=== PATIENT | female | born 1990 | race Caucasian/White ===

== ENCOUNTER 2018-10-03 21:00 | Inpatient (IN) | payer MEDICAID, OTHER, SELFPAY ==
[2018-10-03] MEDS ORDERED: Carboprost 250 MCG/ML AMP IM PRN (22:22)
[2018-10-03] MEDS ORDERED: Ibuprofen 800 MG TAB PO PRN (22:22)
[2018-10-03] MEDS ORDERED: Butorphanol Tartrate 1 MG/ML VIAL SLOW IVP PRN (22:22)
[2018-10-03] MEDS ORDERED: HYDROcodone/Acetaminophen 5/325 mg Tablet PO PRN (22:22)
[2018-10-03] MEDS ORDERED: Methylergonovine 0.2 MG/ML VIAL IM PRN (22:22)
[2018-10-03] MEDS ORDERED: Diphenoxylate HCl/Atropine Tablet PO PRN (22:22)
[2018-10-03] MEDS ORDERED: Lidocaine 1% (PF) 30 ML VIAL SC PRN (22:22)
[2018-10-03] MEDS ORDERED: Misoprostol 200 MCG TAB PR PRN (22:22)
[2018-10-03] MEDS ORDERED: NS w/ Oxytocin 10 units 500 ML IV SCH (22:22)
[2018-10-03 22:47] VITALS: BMI 346.5
[2018-10-03 23:53] LABS: Hemoglobin 13.5 g/dL (12.0-16.0); Mean Corpuscular HGB CONC 32.5 g/dL (32.0-36.0); Mean Corpuscular Hemoglobin 29.4 pg (27.0-31.0); Mean Corpuscular Volume 90.3 fL (78.0-98.0); Mean Platelet Volume 10.8 fL (7.4-10.4); Platelet Count 213 thou/uL (130-400); RBC Distribution Width 11.4 % (11.5-14.5); Red Blood Cell (RBC) Count 4.59 mill/uL (4.20-5.40); White Blood Cell (WBC) Count 8.8 thou/uL (4.8-10.8)
[2018-10-04 00:35] LABS: Syphilis Antibody Nonreactive (Nonreactive); Syphilis Antibody Index 0.05 S/CO (<1.00 Non-Reactive)
[2018-10-04 00:36] LABS: HBSAg Index 0.19 S/CO (0-0.99); Hep B Surf Ag Non-Reactive S/CO (NonReactive)
[2018-10-04] MEDS: Misoprostol 100 MCG TAB PO SCH ×2 (01:02→10:13)
[2018-10-04] MEDS: Lactated Ringer's 1,000 ML IV SCH ×3 (07:22→17:31)
[2018-10-04] MEDS: Ondansetron PF 4 MG/2 ML Vial IVP PRN ×2 (07:27→17:30)
[2018-10-04] MEDS ORDERED: Fentanyl 4 mcg/Bup 0.1% Cadd 100 ML ONE ×3 (09:24→22:17)
[2018-10-04] MEDS ORDERED: Eucerin (Mineral Oil/Petrolatum,White) 30 gm Jar TOP PRN (09:28)
[2018-10-04] MEDS ORDERED: diphenhydrAMINE 50 MG/ML VIAL IVP PRN (09:28)
[2018-10-04] MEDS ORDERED: Acetaminophen 325 MG TAB PO PRN (09:28)
[2018-10-04] MEDS ORDERED: Ondansetron PF 4 MG/2 ML Vial IVP PRN (09:28)
[2018-10-04] MEDS ORDERED: Lactated Ringer's 500 ML IV PRN (09:28)
[2018-10-04] MEDS ORDERED: ePHEDrine/0.9% NaCl/PF SYRINGE 50 mg/10 ml SLOW IVP PRN (09:28)
[2018-10-04] MEDS ORDERED: Naloxone HCl 0.4 mg/ml Vial IVP PRN ×2 (09:28)
[2018-10-04] MEDS ORDERED: Promethazine HCl 25 MG/ML VIAL IM PRN (09:28)
[2018-10-04] MEDS ORDERED: Communication Order-Pharmacy FS SCH (09:30)
[2018-10-04] MEDS ORDERED: Fentanyl 4 mcg/Bupivacaine 0.1% Cassette 100 ML EPIDURAL SCH (09:30)
[2018-10-04] MEDS: NS w/ Oxytocin 10 units 500 ML IV SCH (10:13)
[2018-10-04] MEDS: NS / Oxytocin 40 units/1000ml 1,000 ML IV PRN (23:00)
[2018-10-05] MEDS: NS / Oxytocin 40 units/1000ml 1,000 ML IV PRN (00:42)
[2018-10-05] MEDS: Lactated Ringer's 1,000 ML IV SCH (02:09)
[2018-10-05] MEDS: NS w/ Oxytocin 10 units 500 ML IV SCH (02:09)
[2018-10-05] MEDS ORDERED: Ondansetron PF 4 MG/2 ML Vial IVP PRN (02:11)
[2018-10-05] MEDS ORDERED: Preparation H Ointment 28 GM TUBE PR PRN (02:11)
[2018-10-05] MEDS ORDERED: Bisacodyl 10 MG SUPP PR PRN (02:11)
[2018-10-05] MEDS ORDERED: NS / Oxytocin 40 units/1000ml 1,000 ML IV SCH (02:11)
[2018-10-05] MEDS ORDERED: diphenhydrAMINE 25 MG CAP PO PRN (02:11)
[2018-10-05] MEDS ORDERED: Milk Of Magnesia 30 ML UDCUP PO PRN (02:11)
[2018-10-05] MEDS ORDERED: HYDROcodone/Acetaminophen 5/325 mg Tablet PO PRN ×2 (02:11)
[2018-10-05] MEDS ORDERED: Lanolin Ointment 7 GM TUBE TOP PRN (02:11)
[2018-10-05] MEDS ORDERED: Benzocaine/Menthol 20-0.5% 60 ML CAN TOP PRN (02:11)
[2018-10-05] MEDS: Ibuprofen 800 MG TAB PO SCH ×3 (06:03→22:02)
[2018-10-05 06:20] LABS: Hemoglobin 11.8 g/dL (12.0-16.0); Mean Corpuscular HGB CONC 33.6 g/dL (32.0-36.0); Mean Corpuscular Hemoglobin 30.7 pg (27.0-31.0); Mean Corpuscular Volume 91.5 fL (78.0-98.0); Mean Platelet Volume 10.4 fL (7.4-10.4); Platelet Count 171 thou/uL (130-400); RBC Distribution Width 11.5 % (11.5-14.5); Red Blood Cell (RBC) Count 3.85 mill/uL (4.20-5.40); White Blood Cell (WBC) Count 9.3 thou/uL (4.8-10.8)
[2018-10-05] MEDS: Docusate Calcium (SURFAK) 240 MG CAP PO SCH ×2 (09:51→22:02)
[2018-10-05] MEDS: Prenatal Vitamin 1 TAB PO SCH (09:51)
[2018-10-05] MEDS: Ferrous Sulfate 325 MG TAB PO SCH ×2 (09:52→18:42)
[2018-10-06] MEDS: Ibuprofen 800 MG TAB PO SCH ×2 (05:54→14:21)
[2018-10-06] MEDS: Ferrous Sulfate 325 MG TAB PO SCH ×2 (08:10→17:30)
[2018-10-06 09:19] VITALS: BP 116/66
[2018-10-06 09:23] VITALS: TEMP 97.8
[2018-10-06] MEDS: Prenatal Vitamin 1 TAB PO SCH (09:40)
[2018-10-06] MEDS: Docusate Calcium (SURFAK) 240 MG CAP PO SCH (09:40)
== END 2018-10-06 17:37 | disposition home or self-care (01) | DRG 807 ==
LOC: L&D 22:03 → 3SW 10-05 01:50
PROVIDERS: ADMIT Family Medicine; ATTEND Family Medicine
PROC: 10E0XZZ Delivery of Products of Conception, External Approach (ICD-10-PCS; principal; 2018-10-04)
PROC: 10907ZC Drainage of Amniotic Fluid, Therapeutic from Products of Conception, Via Natural or Artificial Opening (ICD-10-PCS; 2018-10-04)
PROC: 3E0P7VZ Introduction of Hormone into Female Reproductive, Via Natural or Artificial Opening (ICD-10-PCS; 2018-10-04)
DX: O80 Encounter for full-term uncomplicated delivery (principal); Z37.0 Single live birth; Z3A.39 39 weeks gestation of pregnancy
CPT/HCPCS: 36415; 51702; 85027; 86780; 86850; 86900; 86901; 87340; J2001; J2405; J2550